=== PATIENT | female | born 1975 | race Asian ===

== ENCOUNTER 2024-05-05 19:01 | Emergency (ER) | payer BC, SELFPAY ==
[2024-05-05 19:13] VITALS: BP 136/94
[2024-05-05 19:36] LABS: % Basophils 0.1 % (0-2); % Eosinophils 0.7 % (0-6); % Immature Granulocytes 0.3 % (0-0.5); % Lymphocytes 11.1 % (20.5-51.1); % Monocytes 5.3 % (1.7-9.3); % Neutrophils 82.5 % (42.2-75.2); Absolute Eosinophils 0.1 10^3/uL (0-0.7); Absolute Immature Granulocytes 0.1 10^3/uL (0-0.05); Absolute Lymphocytes 1.6 10^3/uL (1.2-3.4); Absolute Monocytes 0.8 10^3/uL (0.1-0.6); Absolute Neutrophils 11.8 10^3/uL (1.4-6.5); Hematocrit 39.4 % (37.0-47.0); Hemoglobin 12.8 g/dL (12.0-16.0); Mean Corp Hgb Conc. 32.5 g/dL (33.0-37.0); Mean Corpuscular Hgb 29.4 pg (27.0-31.0); Mean Corpuscular Volume 90.6 fL (81.0-99.0); Mean Platelet Volume 10.7 fL (7.4-10.4); Nucleated Red Blood Cells % 0 %; Platelet Count 333 10^3/uL (130-400); Red Blood Cell Count 4.35 10^6/uL (4.20-5.40); Red Cell Dist. Width 12.5 % (11.5-14.5); White Blood Cell Count 14.3 10^3/uL (4.8-10.8)
[2024-05-05 19:55] LABS: ALT (SGPT) 17 U/L (0-35); AST (SGOT) 23 U/L (14-36); Albumin 5.2 g/dl (3.5-5.0); Alkaline Phosphatase 82 U/L (38-126); Blood Urea Nitrogen 14 mg/dl (7-17); Calcium 10.1 mg/dl (8.4-10.2); Carbon Dioxide 22 mmol/L (22-30); Chloride 102 mmol/L (98-107); Glucose 102 mg/dl (70-99); Potassium 4.4 mmol/L (3.5-5.1); Sodium 136 mmol/L (135-145); Total Bilirubin 0.5 mg/dl (0.2-1.3); Total Protein 8.2 g/dl (6.3-8.2); eGFR > 60.00
[2024-05-05 20:13] LABS: Urine Albumin 1+ (Neg - Trace); Urine Bilirubin Negative (Negative); Urine Character Very Cloudy (Clear); Urine Color Straw; Urine Glucose Negative (Negative); Urine Ketone Negative (Negative); Urine Leukocyte 2+ (Negative); Urine Nitrite Positive (Negative); Urine Occult Blood 4+ (Negative); Urine Urobilinogen Negative (Neg - 1+)
[2024-05-05 20:23] LABS: Urine Squamous Cell None seen /LPF (Few)
[2024-05-05 20:24] LABS: Urine Bacteria Moderate (Negative); Urine White Cell 80-90 /HPF (0-5)
[2024-05-05 22:05] VITALS: BMI 19.2
[2024-05-05 22:09] VITALS: BP 125/93
[2024-05-05] MEDS: ROCEPHIN 1000 MG IV (22:12)
--- NOTE | 2024-05-05 22:24 | ED.GENMED ---
History of Present Illness
General
Chief Complaint: Female [employer]/Gu symptoms
Source: patient
Exam Limitations: none
Time Seen by Provider: 05/05/24 21:41
History of Present Illness
History of Present Illness:
48-year-old female presents complaining of lower abdominal pain and urinary symptoms of frequency dysuria and urgency. She just finished a 9-day course of cefuroxime 2 days ago for presumed kidney infection. She was seen at [facility]
for this. She had a CT scan performed at that time was negative for stone. Today she had a transvaginal pelvic ultrasounds demonstrated a right sided ovarian cyst. She states while on the cefuroxime she was feeling better however her symptoms
returned. She denies any fever or vomiting. She has been moving her bowels. She has had a good appetite. No other complaints at this time
Past History
Past History
ED Past Medical History: None
ED Past Surgical History: None
Social History
Living: with family
Phy Exam
Physical Exam
Physical Exam:
General: Well-appearing female no acute respiratory distress nontoxic in appearance
HEENT: Normocephalic atraumatic
Heart: Regular rate and rhythm no murmurs
Lungs: Clear no wheeze
Abdomen is soft nondistended no costovertebral angle tenderness mild suprapubic tenderness
Extremities: No cyanosis or edema
Course
Orders/Labs/Results
Orders:
Orders
05/05/24 19:24
Complete Blood Count/With Diff Urgent
Comprehensive Metabolic Panel Urgent
05/05/24 19:51
Urinalysis Reflex To Culture Urgent
Date Specimen was Collected: 05/05/24
Time Specimen was Collected: 19:18
Urine Microscopic Reflex Cult Urgent
Urine Culture Urgent
JACY Source: U
Specimen Description:
Date Specimen was Collected: 05/05/24
Time Specimen was Collected: 19:18
12/23/24 22:01
CefTRIAXone [Rocephin] 1,000 mg IV NOW STA
Abnormal Lab Results
05/05/24 05/05/24
19: 19:51
WBC 14.3 H 10^3/uL
(4.8-10.8)
MCHC 32.5 L g/dL
(33.0-37.0)
MPV 10.7 H fL
(7.4-10.4)
Abs Immat Gran (auto) 0.1 H 10^3/uL
(0-0.05)
Absolute Neuts (auto) 11.8 H 10^3/uL
(1.4-6.5)
Absolute Monos (auto) 0.8 H 10^3/uL
(0.1-0.6)
Neutrophils % 82.5 H %
(42.2-75.2)
Lymphocytes % 11.1 L %
(20.5-51.1)
Glucose 102 H mg/dl
(70-99)
Albumin 5.2 H g/dl
(3.5-5.0)
Ur Occult Blood Reflex 4+ A
(Negative)
Urine Nitrite (Reflex) Positive A
(Negative)
Leukocyte Esterase Rfl 2+ A
(Negative)
Urine RBC 11-15 A /HPF
(0-2)
Urine WBC (Reflex) 80-90 A /HPF
(0-5)
Urine Bacteria (Reflex) Moderate A
(Negative)
Urine Albumin (Reflex) 1+ A
(Neg - Trace)
05/05/24 19:24
05/05/24 19:24
Vital Signs
Initial and Last Documented VS:
Initial Vital Signs
Temp Pulse Resp BP Pulse Ox
98 F 92 18 136/94 100
05/05/24 19:13 05/05/24 19:13 05/05/24 19:13 05/05/24 19:13 05/05/24 19:13
Last Documented Vital Signs
Temp Pulse Resp BP Pulse Ox
98 F 90 18 125/93 100
05/05/24 19:13 05/05/24 22:09 05/05/24 22:09 05/05/24 22:09 05/05/24 22:09
MDM/Problems Addressed
Differential Diagnosis Includes:
Urinary symptoms with lower abdominal pain recent CT negative ultrasound today showed right sided ovarian cyst. I reviewed both of these reports on the patient's MyChart on her phone. Labs reviewed today white count 14,000. Urinalysis with
infection. Patient has not been on Pyridium. Shared decision making occurred. She is stable and nontoxic. Offered her admission for IV antibiotics given recent oral antibiotic failure versus treatment with a different oral antibiotic. She
wishes not to be here for the holiday. She was given a dose of Rocephin through the IV and discharged on Omnicef. Cultures pending
*Critical Care Note
Total Time (30-74mins, 75-104mins- exclusive of procedures): Not Applicable
ED Attending Note
-
Portions of this chart may have been created with voice recognition software.� Occasional wrong word or��sound alike� substitutions may have occurred due to the inherent limitations of voice recognition software.
Discharge Plan
Departure
Patient Disposition: Home (Routine Discharge)
Date of Disposition: 05/05/24
Time of Disposition: 22:28
Patient with high blood pressure during this ER visit?: No
Discharge Problem:
UTI (urinary tract infection)
Instructions: Urinary Tract Infection, Adult (DC)
Prescriptions:
New
cefdinir 300 mg capsule
300 mg PO BID 10 Days Qty: 20 0RF
Stand Alone Forms: Return to Work
Activity Restrictions/Additional Instructions:
Drink plenty of fluids. Use antibiotic as directed. Please return here for increasing pain fever vomiting or other concerning finding.
Interventions
Interventions:
*Risk Screen - Suicide Last Done: 05/05/24 22:06
*General Assessment Last Done: 05/05/24 22:06
*Neglect/Abuse Screening Last Done: 05/05/24 22:06
ED- Fall Risk Assessment Last Done: 05/05/24 22:13
*ED COVID-19 Vaccine History Last Done: 05/05/24 22:06
ED-Female Genitourinary Assessment Last Done: 05/05/24 22:06
Discharge Date and Time
Print Language: [id number]
== END 2024-05-05 22:39 | disposition home or self-care (01) ==
LOC: EMR 19:01
PROVIDERS: Emergency Medicine; EMERGENCY PHYSICIAN Student in an Organized Health Care Education/Training Program; FAMILY PHYSICIAN Internal Medicine
DX: N39.0 Urinary tract infection, site not specified (principal); N83.201 Unspecified ovarian cyst, right side
CPT/HCPCS: 99284; 96374; 80053; 81003; 81015; 85025; 87071; 87086; 87186